=== PATIENT | female | born 1945 | race Caucasian/White ===

== ENCOUNTER 2016-09-29 16:29 | Emergency (ER) | payer MEDICARE, OTHER ==
[~2016-09-29] VITALS: Ht 157.5 cm; Wt 62.7 kg
[2016-09-29] MEDS ORDERED: 0.9% Sodium Chloride 1,000 ML IV ONE (16:30)
[2016-09-29 16:34] VITALS: BP 167/84; PULSE 86; O2SAT 98
--- NOTE | 2016-09-29 16:47 | ED.REPORT ---
HPI-Extremity Problem Upper Date of Service Sep 29, 2016 ED Provider: History of Present Illness: ground level fall today around 3 pm today right arm pain, right hand dominant. taya is primary care. normally healthy. 04/06. [facility] move here from [place]. Nursing Notes Stated Complaint: POSS RIGHT ARM FRACTURE Chief Complaint: Multiple Trauma/Fall Allergies: Uncoded Allergies: PENICLLIN (Allergy, Intermediate, 09/29/16) General Time Seen by MD: 16:46 Chief Complaint Shoulder injury right Hx Obtained From: Patient Onset Occurred: 1 - 4 hours ago Symptom Duration: Since onset Past Medical History Past Medical History Denies: Asthma Past Surgical History back and neck Smoking History Never Smoker Social History Alcohol Use: "Social" Drug Use: Denies drug use Other Social History: Occupation no work or school 09/29/2016 Review of Systems Basic Review of Systems Eyes: Vision NL, No discharge ENT: Hearing NL, No pain, No nasal congestion, No pharyngeal pain Respiratory: No shortness of breath, No cough, No wheeze Cardiovascular: No chest pain, No dyspnea on exertion, No orthopnea, No parox noct dyspnea, No palpitations GI: No abdominal pain, No anorexia, No nausea, No vomiting : No dysuria, No frequency Hematologic: No bleeding, No bruising Endocrine: No cold intolerance, No heat intolerance, No weight gain, No weight loss Allergy / Immune: No allergy Psychiatric: Normal thought content Physical Exam Initial Vital Signs Vital Signs (First) Date Time Temp Pulse Resp B/P Pulse Ox O2 Delivery O2 Flow Rate FiO2 09/29/16 16:34 36.1 86 167/84 98 Room Air Initial VS: Reviewed, Vital signs normal General/Constitutional: Well-developed, Well-nourished Head / Eyes: Atraumatic, Normocephalic, PERRL ENT: Mucous membranes moist, Conjunctiva normal, No scleral icterus Neck: Supple, Non-tender, Full range of motion Respiratory: Breath sounds normal, Clear to auscultation, No respiratory distress Cardiovascular: Regular rate & rhythm, Heart sounds normal, Intact distal pulses Abdomen / GI: Soft, Non-tender, No guarding, No rebound, No distention Back: No CVA tenderness Lymphatic: No lymphadenopathy Lower Extremities: Vascular intact, Neuro intact, No swelling, No tenderness Skin: Warm, Dry, No cyanosis Neurologic: Alert, Oriented, Nonfocal Psychiatric: Mood/affect normal, Behavior normal, Normal thought content General/Constitutional: Awake, Alert, No acute distress, Well appearing, Well developed, Well hydrated Respiratory / Chest: Atraumatic, Breath sounds NL, Breath sounds = bilat, No respiratory distress Cardiovascular: Heart rate NL, Regular rhythm, Heart sounds NL, No gallop right arm has obvious swelling on mid upper arm. Sensation intact in all fingers and forearm. finger movement intact Interpretation & Diagnostics X-Ray Interpretation Xray Interpretation: INDINGS: Bones: There is moderately displaced comminuted spiral fracture of the mid humeral shaft. No suspicious bony lesions. Soft tissues: No suspicious soft tissue calcifications. IMPRESSION: Moderately displaced comminuted spiral fracture of the mid humeral shaft, with potential for radial nerve injury given its location. Re-Eval/Medical Decision Med Decision/Clinical Course discussed with Dr. mendoza, would like the arm hanging as much as possible, will see in office Discharge & Departure Impression: Primary Impression: Arm fracture, right Encounter type: initial encounter Fracture type: closed Qualified Code: S42.301A - Unspecified fracture of shaft of humerus, right arm, initial encounter for closed fracture Disposition: Home Patient Instructions: Arm Fracture in Adults (ED) Additional Instructions: The x-ray indicates a right spiral fracture of the humerus. Please call Dr. Mendoza tomorrow for a follow up appointment. Dr. Mendoza would like the arm hanging. Use ice 15 minutes on and 15 minutes off for 3 to 4 days. Use percocet 1 to 2 every 4 to 6 hours as needed for severe unrelenting pain. Referrals: Dwain Mendoza MD EDSupervising Provider for APC: Tamar Velez MD copies to: Dwain Mendoza MD, Sue ARNP Sep 29, 2016 16:47
--- NOTE | 2016-09-29 17:06 | DRSVH ---
PROCEDURE: X-RAY RIGHT HUMERUS, MINIMUM TWO VIEWS ([id number]) INDICATIONS: 71 year-old female with right upper arm pain after ground level fall. TECHNIQUE: 2 views of the humerus were acquired. COMPARISON: None. FINDINGS: Bones: There is moderately displaced comminuted spiral fracture of the mid humeral shaft. No suspicio us bony lesions. Soft tissues: No suspicious soft tissue calcifications. IMPRESSION: Moderately displaced comminuted spiral fracture of the mid humeral shaft, with potential for radial nerve injury given its location. Dictated by: Woody Jasso M.D. on 09/29/2016 at 17:04 Approved by: Woody Jasso M.D. on 09/29/2016 at 17:04
[2016-09-29] MEDS: oxyCODONE-Acetamin 5-325 mg Tablet PO ONE ×2 (17:32→17:49)
[2016-09-29 18:35] VITALS: BP 134/75; PULSE 80; O2SAT 98
[2016-09-29 19:27] VITALS: BP 134/75; PULSE 80; O2SAT 98
== END 2016-09-29 19:30 | disposition home or self-care (01) ==
LOC: SED 16:29 → EDBD 16:29 → SED 19:30
DX: S42.301A Unspecified fracture of shaft of humerus, right arm, initial encounter for closed fracture (principal); W18.30XA Fall on same level, unspecified, initial encounter; Y92.830 Public park as the place of occurrence of the external cause; Y93.89 Activity, other specified; Y99.8 Other external cause status; Z88.0 Allergy status to penicillin
CPT/HCPCS: 73060; 96360; 96361; 99284; J7030